=== PATIENT | female | born 1960 | race Caucasian/White ===

== ENCOUNTER 2017-10-21 18:50 | Emergency (ER) | payer MEDICAID ==
--- NOTE | 2017-10-21 19:25 | EDM.PDOC ---
ED HPI GENERAL MEDICAL PROBLEM - General Chief Complaint: General Stated Complaint: manic crisis Time Seen by Provider: 10/21/17 19:20 History Limitations: Reports: Other (argumentative) - History of Present Illness INITIAL COMMENTS - FREE TEXT/NARRATIVE: Pateint presents to ER complaining of a manic episode. She states she is bipolar, and has not taken any medications in 5 months. She was recently fired by her doctor fighting with his nurse. patient denies any use of illegal drugs , but states she took a pill from a friend to help with anxiety a day or 2 ago. she is very argumentative, and refuses to answer questions stating she wants a ride to the [facility]. She apparently had a fight with her sister and was kiced out of the house tonight and has not where else to go. Onset: Gradual Duration: Week(s): - Related Data Allergies Allergy/AdvReac Type Severity Reaction Status Date / Time hydrocodone Allergy Nausea Verified 10/21/17 19:05 Home Meds: Home Meds . [No Known Home Meds] 10/21/17 [History] Social & Family History - Tobacco Use Smoking Status *Q: Unknown Ever Smoked Used Tobacco, but Quit: Yes ED ROS GENERAL - Review of Systems Review Of Systems: ROS reveals no pertinent complaints other than HPI. Constitutional: Reports: No Symptoms HEENT: Reports: No Symptoms Respiratory: Reports: No Symptoms Cardiovascular: Reports: No Symptoms Endocrine: Reports: No Symptoms GI/Abdominal: Reports: No Symptoms : Reports: No Symptoms Musculoskeletal: Reports: No Symptoms Skin: Reports: No Symptoms Neurological: Reports: No Symptoms Psychiatric: Reports: Agitation, Anxiety Hematologic/Lymphatic: Reports: No Symptoms Immunologic: Reports: No Symptoms ED EXAM, GENERAL - Physical Exam Exam: See Below Exam Limited By: Uncooperative General Appearance: Alert, Anxious Ears: Normal External Exam Nose: Normal Inspection Throat/Mouth: Normal Inspection Respiratory/Chest: No Respiratory Distress Cardiovascular: Normal Peripheral Pulses Extremities: Normal Inspection Neurological: Alert, Oriented Psychiatric: Anxious, Tearful Course - Vital Signs Last Recorded V/S: Last Vital Signs Temp 98.3 F 10/21/17 19:12 Pulse 95 10/21/17 19:12 Resp 22 H 10/21/17 19:12 BP 123/90 10/21/17 19:12 Pulse Ox 97 10/21/17 19:12 - Orders/Labs/Meds Meds: Medications Discontinued Medications Generic Name Dose Route Start Last Admin Trade Name Kesha PRN Reason Stop Dose Admin Lorazepam Confirm 10/21/17 19:01 10/21/17 19:30 Ativan Administered 10/21/17 19:02 Not Given Dose 2 mg .ROUTE .STK-MED ONE Lorazepam 1 mg 10/21/17 19:18 10/21/17 19:31 Ativan IM 10/21/17 19:19 1 mg ASDIRECTED ONE Administration Departure - Departure Time of Disposition: 19:36 (Patient refused urinalysis, and urine drug screen and left before treatment.) Disposition: Eloped 07 Condition: Fair Clinical Impression: Yarelis - Discharge Information Referrals: Provider,Unknown [Primary Care Provider] - Forms: ED Department Discharge
[2017-10-21 19:30] VITALS: BP 123/90
[2017-10-21] MEDS: LORazepam 2 MG/ML Syringe ONE (19:30)
[2017-10-21] MEDS: LORazepam 2 MG/ML Syringe IM ONE (19:31)
== END 2017-10-21 19:45 | disposition left against medical advice (07) ==
LOC: CC.ED 18:50
DX: F30.9 Manic episode, unspecified (principal); Z88.5 Allergy status to narcotic agent
CPT/HCPCS: 96372; 99282; J2060